=== PATIENT | female | born 1950 | race Caucasian/White ===

== ENCOUNTER → 2016-06-04 | Outpatient (CLI) | payer OTHER ==
[~2016-06-04] MED LIST: ALEN70TA30 PO; GABA-528 PO; HYDR-3720 PO; IBUP-1542 PO; RANI150T5 PO; ROPI0.25 PO; TRAM50TA2 PO
--- NOTE | 2016-06-04 11:06 | RADRPT ---
PROCEDURE: XR Left Knee. CLINICAL INDICATION: Left knee pain. TECHNIQUE: Two views. Frontal and lateral. COMPARISON: 10/22/2015. FINDINGS: There is no fracture or dislocation. The soft tissues are normal. There is diffuse osteopenia. The articular surfaces are intact. There is no lytic or blastic lesion. There is no radiopaque foreign body. IMPRESSION: 1. Joint effusion no longer present. 2. Diffuse osteopenia. 3. Otherwise normal images of the left knee. RPTAT: QQ .John Lafleur MD, MD Date Time Electronically viewed and signed by .John Lafleur MD, MD on 06/04/2016 11:05 .R/
--- NOTE | 2016-06-04 11:07 | RADRPT ---
PROCEDURE: XR Left Hip and pelvis. CLINICAL INDICATION: Left hip pain. Pelvic pain. Postop. TECHNIQUE: Two views. Frontal pelvis and lateral left hip. COMPARISON: No prior studies are available for comparison. FINDINGS: There is no fracture or dislocation. The soft tissues are normal. There is a left hip total arthroplasty which appears satisfactory. The right hip is grossly normal. There is no lytic or blastic lesion. The upper pelvis is not included on the image. IMPRESSION: 1. Satisfactory postoperative appearance of the left hip. 2. Otherwise unremarkable study. RPTAT: QQ .John Lafleur MD, MD Date Time Electronically viewed and signed by .John Lafleur MD, MD on 06/04/2016 11:07 .R/
--- NOTE | 2016-06-04 11:07 | RADRPT ---
PROCEDURE: XR Right hip and pelvis. CLINICAL INDICATION: Right hip pain and pelvic pain. TECHNIQUE: 3 views. Frontal pelvis. Frontal and lateral right hip. COMPARISON: 10/22/2015. FINDINGS: There is no fracture or dislocation. The soft tissues are normal. There are degenerative changes of the right hip with joint space narrowing, osteophytes, and subarti cular sclerosis. 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 There are degenerative changes of the low er lumbar spine. There is no lytic or blastic lesion. IMPRESSION: 1. Moderate degenerative changes of the right hip. 2. Degenerative changes of the lower lumbar spine. 3. Left hip total arthroplasty. RPTAT: QQ .John Lafleur MD, MD Date Time Electronically viewed and signed by .John Lafleur MD, MD on 06/04/2016 11:07 .R/
== END | disposition home or self-care (01) ==
LOC: HKI 08:55
PROVIDERS: ATTEND Orthopaedic Surgery
DX: S72.142D Displaced intertrochanteric fracture of left femur, subsequent encounter for closed fracture with routine healing (principal); M17.12 Unilateral primary osteoarthritis, left knee; M25.562 Pain in left knee; M16.11 Unilateral primary osteoarthritis, right hip; M25.551 Pain in right hip; Z96.642 Presence of left artificial hip joint
CPT/HCPCS: 73502; 73560; Z7500; G0463